=== PATIENT | female | born 1965 | race Caucasian/White ===

== ENCOUNTER 2018-05-21 18:45 | Emergency (ER) | payer MEDICAID ==
[~2018-05-21] VITALS: Ht 157.5 cm; Wt 115.7 kg
--- NOTE | 2018-05-21 18:47 | NUR ---
PT AMBULATES TO BED 4
[2018-05-21 18:52] VITALS: BP 122/62
--- NOTE | 2018-05-21 19:06 | NUR ---
52/F BIB SELF C/O HIGH BP AT HOME. PT STATED HER LAST SYSTOLIC B/P READ 187, SHE FEELS LIGHTHEADED, FLUSHED, AND ANXIOUS X TODAY.FULL CLEAR SPEECH, NO FACIAL ASYMMETRY, AMBULATORY WITH STEADY GAIT, AND MOVING ALL EXTREMITIES EQUALLY. PT ADDS SHE WAS SEEN FOR INGROWN TOE NAIL 3 DAYS AGO AND PLACED ON AMOXICILLIN AND HER PMD INCREASED HER LOSARTAN DOSE TO 100MG YESTERDAY. HX--HTN. RX---LOSARTAN 100MG QD, Triamterene 37.5MG QD. DENIES N/V/D; SKIN IS PINK/WARM/DRY; AAOX4 WITH EVEN AND STEADY GAIT; LUNGS CLEAR BL; HR EVEN AND REGULAR; PT DENIES ANY FEVER, CP, SOB, OR COUGH AT THIS TIME; PATIENT STATES PAIN OF 0/10 AT THIS TIME. PATIENT POSITIONED FOR COMFORT; HOB ELEVATED; BEDRAILS UP X2; BED DOWN. ER MD MADE AWARE OF PT STATUS.
--- NOTE | 2018-05-21 19:09 | NUR ---
REPORT RECEIVED FROM SEAN WILLIAM
--- NOTE | 2018-05-21 19:09 | NUR ---
Pt report given to GILMA WILLIAM. Transfer of care at this time.
--- NOTE | 2018-05-21 19:53 | NUR ---
Dr. Parker evaluating patient at bedside.
[2018-05-21 20:59] VITALS: BP 116/72
--- NOTE | 2018-05-21 20:59 | NUR ---
Patient discharged with v/s stable. Written and verbal after care instructions given and explained. Patient verbalized understanding. Ambulatory with steady gait. All questions addressed prior to discharge. Advised to follow up with PMD.
== END 2018-05-21 20:59 | disposition home or self-care (01) ==
LOC: MED 18:45
DX: I10 Essential (primary) hypertension (principal); F43.9 Reaction to severe stress, unspecified
CPT/HCPCS: 99283

== ENCOUNTER 2019-01-23 16:25 | Emergency (ER) | payer MEDICAID ==
[~2019-01-23] VITALS: Ht 162.6 cm; Wt 113.1 kg
[2019-01-23 16:26] VITALS: BP_SYST 134; BP_SYST 159; BP_DIAS 74; BP_DIAS 82
--- NOTE | 2019-01-23 16:46 | NUR ---
PT AMBULATED TO BED 02.
--- NOTE | 2019-01-23 16:52 | NUR ---
53 YO F BIB SELF W/ C/O VAGINAL/BREAST PAIN X 1 MONTH. PT GOING THROUGH MENOPAUSE AT THIS TIME. PT ALSO STATES BP HAS BEEN ELEVATED, BUT BELIEVES IT IS RELATED TO STRESS BECAUSE OF HER VAGINAL PAIN. PT WORRIED SHE HAS CANCER. NO HX CANCER. PT BP 134/74. DENIES CP, SOB, DIZZINESS. AAOX4, GCS 15. AMB W/ STEADY GAIT. HX HTN RX LOSARTAN, TRIAMPTERINE
[2019-01-23] MEDS: KETOROLAC 60 MG/2 ML VIAL IM ONE ×2 (18:18→18:21)
[2019-01-23 18:30] LABS: APPEARANCE,URINE CLEAR (CLEAR); BILIRUBIN,URINE NEGATIVE (NEGATIVE); BLOOD, URINE NEGATIVE (NEGATIVE); COLOR,URINE YELLOW (YELLOW); LEUKOCYTE ESTERASE ,URINE NEGATIVE (NEGATIVE); NITRITE, URINE NEGATIVE (NEGATIVE); UGLUCOSE NEGATIVE (NEGATIVE)
--- NOTE | 2019-01-23 19:07 | NUR ---
Pt report given to BROWN WILLIAM. Transfer of care at this time.
--- NOTE | 2019-01-23 19:07 | NUR ---
ASSUMED CARE OF PT FROM NATALIIA RENTERIA
--- NOTE | 2019-01-23 19:55 | NUR ---
SPOKE TO IRIS FROM RADIOLOGY ABOUT US RESULTS. INFORMED ME SHE WOULD CALL TO CHECK FOR RESULTS.
[2019-01-23 20:39] VITALS: BP 131/79
--- NOTE | 2019-01-23 20:39 | NUR ---
Patient does not wish to proceed with medical care recommended by DR ACE. Patient given information related to possible complications, up to and including , which could occur as a result of leaving hospital at this time. Patient verbalizes understanding of risks involved leaving against medical advice. Patient has signed AMA form.
== END 2019-01-23 20:39 | disposition left against medical advice (07) ==
LOC: MED 16:25
DX: D25.9 Leiomyoma of uterus, unspecified (principal); N64.4 Mastodynia; I10 Essential (primary) hypertension
CPT/HCPCS: 76830; 81003; 99284; J1885; Q0092

== ENCOUNTER 2021-11-08 22:16 | Emergency (ER) | payer MEDICAID, OTHER ==
[~2021-11-08] VITALS: Ht 160 cm; Wt 107.2 kg
[2021-11-08 22:52] VITALS: BP 126/72
--- NOTE | 2021-11-09 00:41 | NUR ---
pt taken to chair b
[2021-11-09] MEDS ORDERED: KETOROLAC 60 MG/2 ML VIAL IM ONE ×2 (01:00→01:01)
[2021-11-09] MEDS ORDERED: NAPR-54 PO (01:13)
[2021-11-09 01:15] VITALS: BP 126/72
== END 2021-11-09 00:15 | disposition home or self-care (01) ==
LOC: MED 22:16
DX: S16.1XXA Strain of muscle, fascia and tendon at neck level, initial encounter (principal); I10 Essential (primary) hypertension; Z79.899 Other long term (current) drug therapy; Z98.890 Other specified postprocedural states; Y04.0XXA Assault by unarmed brawl or fight, initial encounter; Y93.89 Activity, other specified; Y92.89 Other specified places as the place of occurrence of the external cause; Y99.8 Other external cause status
CPT/HCPCS: 99282; J1885

== ENCOUNTER 2022-06-16 14:18 | Emergency (ER) | payer MEDICAID ==
[~2022-06-16] VITALS: Ht 160 cm; Wt 110.7 kg
[~2022-06-16 14:18] MED LIST: NAPR-54 PO
[2022-06-16 15:14] VITALS: BP 163/87
--- NOTE | 2022-06-16 18:22 | NUR ---
LWBS [id number]
[2022-06-17] MEDS ORDERED: NIRM1TAB PO (02:57)
== END 2022-06-16 18:22 | disposition left against medical advice (07) ==
LOC: MED 14:18
DX: R51.9 Headache, unspecified (principal); Z53.21 Procedure and treatment not carried out due to patient leaving prior to being seen by health care provider

== ENCOUNTER 2022-06-16 21:46 | Emergency (ER) | payer MEDICAID ==
[~2022-06-16] VITALS: Ht 160 cm; Wt 110.7 kg
[2022-06-17 02:45] VITALS: BP 135/72
--- NOTE | 2022-06-17 02:50 | NUR ---
SEEN AND EXAMINED BY JORGE
[2022-06-17] MEDS ORDERED: NIRM1TAB PO (02:57)
[2022-06-17 03:00] VITALS: BP 135/72
--- NOTE | 2022-06-17 03:00 | NUR ---
-Patient discharged with v/s stable. Written and verbal after care instructions given and explained. Patient alert, oriented and verbalized understanding of instructions. Ambulatory with steady gait. All questions addressed prior to discharge. ID band removed. Patient advised to follow up with PMD. Rx of PAXLOVID CO PCK given. Patient educated on indication of medication including possible reaction and side effects. Opportunity to ask questions provided and answered.
== END 2022-06-17 03:00 | disposition home or self-care (01) ==
LOC: MED 21:46
DX: U07.1 COVID-19 (principal); R03.0 Elevated blood-pressure reading, without diagnosis of hypertension; I10 Essential (primary) hypertension; Z79.899 Other long term (current) drug therapy
CPT/HCPCS: 99283